=== PATIENT | female | born 1995 | race Caucasian/White ===

== ENCOUNTER 2021-04-03 10:32 | Emergency (ER) | payer OTHER ==
[~2021-04-03] VITALS: Ht 162.6 cm; Wt 76.2 kg
[2021-04-03 10:49] VITALS: BP_SYST 116
--- NOTE | 2021-04-03 10:50 | NUR ---
Placed in room 8 . Placed on cafeteria monitor, blood pressure machine and pulse oximeter. To gown for exam. Side rails up.
--- NOTE | 2021-04-03 10:55 | NUR ---
Pt presents to ED with c/o dizziness and ear pressure after being hit in the head by a soccer ball on 04/02/21. No LOC, perrla. All vital signs stable.
--- NOTE | 2021-04-03 10:55 | NUR ---
ER at bedside examining patient.
[2021-04-03 10:56] VITALS: BP_SYST 116
--- NOTE | 2021-04-03 10:58 | NUR ---
Patient given written and verbal discharge instructions and verbalizes understanding. ER MD discussed with patient the results and treatment provided. Patient in stable condition. ID arm band removed. IV catheter removed intact and dressing applied, no active bleeding. Patient educated on pain management and to follow up with PMD. Pain Scale 0. Opportunity for questions provided and answered. Medication side effect fact sheet provided.
== END 2021-04-03 11:04 | disposition home or self-care (01) ==
LOC: SED 10:32
DX: S09.90XA Unspecified injury of head, initial encounter (principal); W21.02XA Struck by soccer ball, initial encounter; Y93.66 Activity, soccer; Y92.89 Other specified places as the place of occurrence of the external cause; Y99.8 Other external cause status
CPT/HCPCS: 99281